=== PATIENT | female | born 1980 | race Caucasian/White ===

== ENCOUNTER → 2018-05-29 | Outpatient (CLI) | payer BC ==
--- NOTE | 2018-05-29 18:42 | RADIOLOGY REPORT (SQ) ---
EXAM DESCRIPTION: U/S NON-OB PELVIS W/O DOP COMPLETED DATE/TIME: 05/29/2018 6:24 pm REASON FOR STUDY: R10.2 PELVIC AND PERINEAL PAIN R10.2 PELVIC AND PERINEAL PAIN LMP 04/21/2018 COMPARISON: None. TECHNIQUE: Dynamic and static grayscale images acquired of the pelvis via transabdominal approach an d recorded on PACS. Additional selected color Doppler and spectral images recorded. LIMITATIONS: None. FINDINGS: UTERUS: Contour normal. No mass. ENDOMETRIAL STRIPE: No focal or generalized thickening. No masses. CERVIX: No nabothian cysts. RIGHT OVARY AND DOPPLER: Normal size. No worrisome masses. Normal arterial vascular flow without evid ence for torsion. LEFT OVARY AND DOPPLER: Normal size. No worrisome masses. Normal arterial vascular flow without evide nce for torsion. 14 mm cyst. FREE FLUID: None noted. OTHER: No other significant finding. MEASUREMENTS: UTERUS: 6.9 x 5.2 x 3.1 cm. ENDOMETRIAL STRIPE: 5 mm. RIGHT OVARY: 2.5 x 1.2 x 1.3 cm. LEFT OVARY: 2.6 x 2.4 x 1.8 cm. IMPRESSION: NORMAL PELVIC ULTRASOUND BY TRANSABDOMINAL TECHNIQUE. TECHNICAL DOCUMENTATION: JOB ID: [id number] [employer]- All Rights Reserved Rev-08/17 Reading location - IP/workstation name: [email or web address]
== END ==
LOC: RAD 05-28 18:03
PROVIDERS: ATTEND Student in an Organized Health Care Education/Training Program
DX: R10.2 Pelvic and perineal pain (principal)
CPT/HCPCS: 76856

== ENCOUNTER 2019-10-16 05:24 | Day surgery (SDC) | payer BC ==
[2019-10-13 10:49] LABS: HEMATOCRIT 37.9 % (36.0-47.0); HEMOGLOBIN 12.7 g/dL (12.0-15.5); MEAN CORPUSCULAR HEMOGLOBIN 30.9 pg (27.0-33.4); MEAN CORPUSCULAR HGB CONC 33.4 g/dL (32.0-36.0); MEAN CORPUSCULAR VOLUME 92 fl (80-97); PLATELET COUNT 281 10^3/uL (150-450); RED CELL DISTRIBUTION WIDTH 13.8 % (11.5-14.0); WHITE BLOOD COUNT 8.4 10^3/uL (4.0-10.5)
[2019-10-13 10:56] LABS: APPEARANCE,URINE CLEAR; BILIRUBIN,URINE NEGATIVE (NEGATIVE); CALCIUM OXALATE CRYSTALS,URINE FEW /HPF; COLOR,URINE YELLOW; GLUCOSE, URINE NEGATIVE (NEGATIVE); KETONES,URINE NEGATIVE (NEGATIVE); LEUKOCYTE ESTERASE,URINE NEGATIVE (NEGATIVE); NITRITE,URINE NEGATIVE (NEGATIVE); PROTEIN,URINE NEGATIVE (NEGATIVE); URIC ACID CRYSTALS,URINE RARE /HPF; URINE SPECIFIC GRAVITY 1.024; UROBILINOGEN,URINE NEGATIVE mg/dL (<2.0)
[2019-10-13 11:10] LABS: ALBUMIN 3.9 g/dL (3.5-5.0); ALKALINE PHOSPHATASE 78 U/L (38-126); ASPARTATE AMINO TRANSFERASE 20 U/L (14-36); BILIRUBIN,TOTAL 0.2 mg/dL (0.2-1.3); BLOOD UREA NITROGEN 13 mg/dL (7-20); CALCIUM 9.3 mg/dL (8.4-10.2); CARBON DIOXIDE 29 mmol/L (22-30); CHLORIDE 108 mmol/L (98-107); GLUCOSE 87 mg/dL (75-110); POTASSIUM 4.5 mmol/L (3.6-5.0); TOTAL PROTEIN 6.7 g/dL (6.3-8.2)
[2019-10-13 11:19] LABS: ANION GAP 2 (5-19)
[~2019-10-16 05:24] MED LIST: CLINDAMYCIN 900 MG/D5W RTU 900 MG/50 ML RTUPB IV ONE; GENTAMICIN SULFATE INJ 80 MG/2 ML VIAL ONE; GENTAMICIN SULFATE/PF INJ 20 MG/2 ML VIAL ONE; LACTATED RINGERS 1000 ML IV PRN; LIDOCAINE 0.5% INJ-PF (5 MG/ML) 50 ML SDV SUBCUT PRN
[2019-10-16] MEDS ORDERED: LIDOCAINE 1%/EPINEPHRINE INJ 20 ML VIAL ONE (07:07)
[2019-10-16] MEDS ORDERED: BUPIVACAINE HCL 0.25% /EPINEPHRINE INJ/PF 30 ML SDV ONE (07:07)
[2019-10-16] MEDS ORDERED: METHYLENE BLUE 50 MG/10 ML AMPULE ONE (07:08)
[2019-10-16] MEDS ORDERED: SCOPOLAMINE HYDROBROMIDE 1.5 MG PATCH.TD72 ONE (07:18)
[2019-10-16] MEDS ORDERED: MIDAZOLAM 2 MG/2 ML INJ ONE (07:21)
[2019-10-16] MEDS ORDERED: FENTANYL CITRATE INJ/PF 250 MCG/5 ML AMPULE ONE (07:21)
[2019-10-16] MEDS ORDERED: PROPOFOL INJ 200 MG/20 ML VIAL IV ONE (07:22)
[2019-10-16] MEDS ORDERED: EPHEDRINE SULFATE INJ 50 MG/1 ML AMPULE ONE (07:22)
[2019-10-16] MEDS ORDERED: ESTROGENS,CONJUGATED 0.625 MG/1 GM 30 GM TUBE PV ONE (08:00)
[2019-10-16] MEDS ORDERED: DIPHENHYDRAMINE HCL 50 MG/ML VIAL IV PRN (08:05)
[2019-10-16] MEDS ORDERED: PROMETHAZINE HCL INJ 25 MG/1 ML VIAL IV PRN ×3 (08:05→10:09)
[2019-10-16] MEDS ORDERED: FENTANYL CITRATE INJ/PF 100 MCG/2 ML AMPUL IV PRN ×3 (08:05)
[2019-10-16] MEDS ORDERED: OXYCODONE-ACETAMINOPHEN 5-325 MG TABLET PO PRN ×3 (08:05→10:09)
[2019-10-16] MEDS ORDERED: MEPERIDINE HCL/PF INJ 25 MG/1 ML DISP.SYRIN IV PRN (08:05)
[2019-10-16] MEDS ORDERED: ACETAMINOPHEN 325 MG TABLET PO PRN (10:09)
[2019-10-16] MEDS ORDERED: MORPHINE SULFATE 10 MG/ML INJ IV PRN (10:09)
[2019-10-16] MEDS ORDERED: DIPH/PERTUSS(ACELL)/TETANUS VAC/PF 0.5 ML SYR (>=10YO) IM PRN (10:09)
[2019-10-16] MEDS ORDERED: RINGERS SOLUTION,LACTATED 1,000 ML IV PRN (10:09)
[2019-10-16] MEDS ORDERED: ACETAMINOPHEN 1,000 MG/100 ML RTUPB IV PRN (10:09)
[2019-10-16] MEDS ORDERED: MEASLES,MUMPS&RUBELLA VACC/PF 0.5 ML VIAL SUBCUT PRN (10:09)
[2019-10-16] MEDS ORDERED: SIMETHICONE 80 MG TAB.CHEW PO PRN (10:09)
[2019-10-16] MEDS: FENTANYL CITRATE INJ/PF 100 MCG/2 ML AMPUL ONE ×2 (10:22→10:35)
[2019-10-16] MEDS ORDERED: PROMETHAZINE HCL INJ 25 MG/1 ML VIAL ONE (10:22)
--- NOTE | 2019-10-16 10:31 | Operative Report ---
Operative Report DATE OF SURGERY: 10/16/19 PREOPERATIVE DIAGNOSIS: uterovaginal prolapse, stress urinary incontinence, pel jewel pain POSTOPERATIVE DIAGNOSIS: same OPERATION: Laparoscopic assisted vaginal hysterectomy with bilateral salpingectomy modified Whitt culdoplasty, posterior repair, transvaginal tape, cystoscopy SURGEON: ANUJA BARRIOS 1ST HEEL BOOM OPERATOR: KERLINE AMAYA 2ND Unleavened Dough Mixer: PAM WHITEHEAD ANESTHESIA: GA TISSUE REMOVED OR ALTERED: Uterus cervix bilateral fallopian tubes COMPLICATIONS: None ESTIMATED BLOOD LOSS: 150 cc INTRAOPERATIVE FINDINGS: Uterus approximately 6 weeks size with a small anterior fibroid on the uterine fundus left of the midline, grade 2 prolapse posterior mucosa, anterior mucosa was normal with no evidence of prolapse. PROCEDURE: Patient was taken to the operating room prepared and draped in normal sterile fashion a dorsolithotomy position in [facility]. Coy cath failure was placed to gravity, and a sterile speculum was placed in the vagina the cervix was grasped with a single-tooth tenaculum Hulka clamp was placed for uterine manipulation. Sterile speculum was then removed as well as the single-tooth tenaculum.'s were changed and attention was turned to the upper portion of the case. Umbilical skin incision was made an 11 blade scalpel the peritoneal cavity was entered under direct visualization without Optiview the abdomen was inflated through this port was a 5 mm port with approximately 2 L of CO2 gas. The patient was placed in steep Trendelenburg and under direct visualization 2 5 mm ports were placed approximately 10 cm on either side of the umbilicus. A blunt probe was introduced and the bowel was swept away while the uterus was manipulated and the above findings were noted. Beginning with the left adnexa left fallopian tube was grasped and using a LigaSure the fallopian tube was transected from the mesosalpinx the utero-ovarian ligament was then transected using the LigaSure the rest of the uterine artery was skeletonized down to the level of the internal cervical office where the bladder flap was started using the LigaSure and the bladder flap was dissected bluntly away lower uterine segment. Then turned our attention to the right adnexa and in a similar fashion the right fallopian tube was removed and the right utero-ovarian ligament was transected using the LigaSure. Continued transection of the uterine artery skeletonizing it until we reached the level of the bladder flap and completed this using the LigaSure and blunt dissection. We examined the posterior cul-de-sac carefully and noted the uterosacral ligaments to be quite prominent. At this point because the uterosacral ligaments were so evident and prominent I decided to do a modified Whitt plasty with removal of the uterus rather than a deedee uterosacral suspension as this would be less invasive for the patient. We then turned our attention back to the lower portion of the case and began our vaginal approach the gas was turned off camera was removed ports were left in place. Short weighted speculum was placed in the vagina the cervix was grasped with a triple tooth tenaculum blade was placed in anterior fourchette. The cervix was then injected circumferentially with approximately 10 cc of Marcaine with epi. The uterine cervix was then scored with a 10 blade fascia was dissected away sharply with Perrin scissors and pickups. The anterior cul-de-sac was entered sharply with Perrin scissors for blood was placed in this defect to hold away the bladder we then entered the posterior cul-de-sac sharply with the Perrin's and replaced the short weighted speculum with a long weighted speculum. The uterosacral ligaments were then clamped on both sides with a Kanchan clamp and like transected and ligated with 0 Vicryl. These were tagged with hemostats on both sides. Then continued to complete my transection of the uterine arteries using Kanchan clamps and suture ligation. LigaSure was used as needed to complete the transection and the until the uterus was completely freed. The uterus and fallopian tubes were removed as 1 the deep weighted speculum was replaced with a short weighted speculum sponge stick was placed into the vaginal vaginal opening and the anterior was inspected and found to be quite hemostatic stick was then removed. And the cuff was closed with an 0 Vicryl runnier modified Whitt culdoplasty to incorporate the uterosacral ligaments into the closure for support. Once this was completed I then examined the patient once more and found that she did have some continued posterior prolapse for a posterior repair was begun. The posterior mucosa was tented with 2 Allis clamps in the midline and I injected this with Marcaine with epi the mucosa was then scored using a 15 blade and the mucosa was dissected away from the midline until adequate defect had been made. 2 support sutures of 0 Vicryl were used to compress the defect underneath the mucosa and correct the rectocele. Cosa that was extra was then removed using Metzenbaums skin was closed with an 2-0 Vicryl. At this point Dr. Whitehead joined me for help with the transvaginal tape. Asked him to inspect the patient's anatomy and he agreed with me the there was no need for an anterior repair well as he felt that the uterosacral ligaments were doing an adequate job of supporting the vaginal cuff. We then grasped the vaginal mucosa approximately 1-1/2 cm below the urethral opening with 2 Allis clamps in the midline and we injected this with Marcaine with epi to separate the vaginal mucosa from the underlying bladder mucosa we then added a third Allis and created a triangular affect scored in the midline we then dissected both bluntly and sharply with Metzenbaums on either side from the bladder underling under the obturator space. And made 2 holes in the greater notch in order to adequately place the obstetrics sling. The obstetrics was then placed through the obturator notch and passed in her existing defect until the needle was passed through the the and underneath the vaginal mucosa first on the left and then on the right. Inspected to make sure there is no piercing of the vaginal skin we then performed a cystoscopy and confirmed that the needles had not penetrated the bladder. Cystoscopy was completed and we then placed the optic sling hooking each end of the optic sling onto the needles and pulling the sling through the defect this was trimmed in a normal fashion. A Marjorie clamp was placed behind the transvaginal tape to ensure that it was not tightened to 2 extremely. The tape was trimmed at the skin. the skin was closed at both sites using Dermabond. Marjorie clamp was removed and the vaginal mucosa was closed in a running fashion with 2-0 Vicryl. The vagina was then packed with a Kerlix offered in Premarin cream. Coy was inspected to make sure there was no hematuria evident. And the procedure was completed. Sponge lap and needle counts were correct x2 and the patient was taken to recovery in stable condition.
[2019-10-16] MEDS: KETOROLAC TROMETHAMINE INJ/PF 30 MG/1 ML SDV IV SCH ×2 (13:20→18:24)
[2019-10-16] MEDS ORDERED: ONDANSETRON HCL INJ/PF 4 MG/2 ML SDV ONE (15:31)
[2019-10-16] MEDS ORDERED: NEOSTIGMINE METHYLSULFATE 10 MG/10 ML VIAL ONE (15:31)
[2019-10-16] MEDS ORDERED: ROCURONIUM BROMIDE INJ 50 MG/5 ML VIAL IV ONE (15:31)
[2019-10-16] MEDS ORDERED: DEXAMETHASONE SOD PHOSPHATE INJ 4 MG/1 ML VIAL ONE (15:31)
[2019-10-16] MEDS ORDERED: SUCCINYLCHOLINE CHLORIDE INJ 200 MG/10 ML VIAL ONE (15:31)
[2019-10-16] MEDS ORDERED: GLYCOPYRROLATE 1 MG/5 ML VIAL ONE (15:31)
[2019-10-16] MEDS: DOCUSATE SODIUM 100 MG CAPSULE PO SCH (18:30)
[2019-10-17] MEDS: KETOROLAC TROMETHAMINE INJ/PF 30 MG/1 ML SDV IV SCH (02:58)
[2019-10-17] MEDS: OXYCODONE-ACETAMINOPHEN 5-325 MG TABLET PO PRN ×2 (04:31→08:50)
[2019-10-17] MEDS ORDERED: IBUPROFEN 800 MG TABLET PO SCH (06:00)
[2019-10-17 07:30] LABS: HEMATOCRIT 34.5 % (36.0-47.0); HEMOGLOBIN 11.7 g/dL (12.0-15.5); MEAN CORPUSCULAR HEMOGLOBIN 31.3 pg (27.0-33.4); MEAN CORPUSCULAR VOLUME 92 fl (80-97); PLATELET COUNT 257 10^3/uL (150-450); RED BLOOD COUNT 3.75 10^6/uL (3.72-5.28); RED CELL DISTRIBUTION WIDTH 14.3 % (11.5-14.0); WHITE BLOOD COUNT 10.6 10^3/uL (4.0-10.5)
[2019-10-17 10:21] VITALS: BP 114/70
[2019-10-17] MEDS: DOCUSATE SODIUM 100 MG CAPSULE PO SCH (10:28)
--- NOTE | 2019-10-17 11:19 | PDOC DISCHARGE SUMMARY ---
Impression - Admit/DC Date/PCP Admission Date/Primary Care Provider: RACHELLE DENNIS MD Discharge Date: 10/17/19 - Discharge Diagnosis (1) Uterovaginal prolapse Is this a current diagnosis for this admission?: Yes (2) Stress incontinence of urine Is this a current diagnosis for this admission?: Yes (3) Pelvic pain Is this a current diagnosis for this admission?: Yes - Assessment Summary: underwentj LAVH w/ posterior repair and TOT yesterday. unremarkable post operative course. voiding normally and tolerating regular diet. - Additional Information Resuscitation Status: Full Code Discharge Diet: As Tolerated Discharge Activity: Balance Activity w/Rest, No Driving, No Lifting Over 10 Pounds, No Lifting/Push/Pulling, Pelvic Rest, No tub bath, Walk Frequently Referrals: ANUJA BARRIOS MD [ACTIVE STAFF] - 10/29/19 8:30 am (CALL THE OFFICE OF ANY QUESTIONS OR CONCERNS.) RAHCELLE DENNIS MD [Primary Care Provider] - Prescriptions: Oxycodone HCl/Acetaminophen [Percocet 5-325 mg Tablet] 1 tab PO Q4HP PRN #30 tablet PRN Reason: Docusate Sodium [Colace 100 mg Capsule] 100 mg PO BID #60 capsule Ibuprofen [Motrin 800 mg Tablet] 800 mg PO Q8H PRN #60 tablet PRN Reason: Home Medications: Bupropion HCl [Bupropion Xl] 300 mg PO DAILY 10/13/19 Estradiol [Estrace] 42.5 gm VG 10/13/19 Lisdexamfetamine Dimesylate [Vyvanse] 50 mg PO PRN PRN 10/13/19 Valacyclovir HCl [Valtrex 500 Mg Tablet] 500 mg PO DAILY 10/13/19 Venlafaxine HCl [Effexor 75 mg Tablet] 75 mg PO DAILY 10/13/19 Docusate Sodium [Colace 100 mg Capsule] 100 mg PO BID #60 capsule 10/17/19 Ibuprofen [Motrin 800 mg Tablet] 800 mg PO Q8H PRN #60 tablet 10/17/19 Oxycodone HCl/Acetaminophen [Percocet 5-325 mg Tablet] 1 tab PO Q4HP PRN #30 tablet 10/17/19 History of Present Illiness History of Present Illness: RADHA GRIFFITHS is a 39 year old female Physical Exam - Physical Exam Vital Signs: Temp Pulse Resp BP Pulse Ox 97.8 F 64 16 120/68 100 10/17/19 07:46 10/17/19 07:46 10/17/19 07:46 10/17/19 07:46 10/17/19 07:46 Intake & Output 10/16/19 10/17/19 10/18/19 06:59 06:59 06:59 Intake Total 0 2100 Output Total 1750 300 Balance 0 350 -300 Weight 68 kg 69.717 kg Results Laboratory Results: WBC 10.6 10^3/uL (4.0-10.5) H 10/17/19 07:08 RBC 3.75 10^6/uL (3.72-5.28) 10/17/19 07:08 Hgb 11.7 g/dL (12.0-15.5) L 10/17/19 07:08 Hct 34.5 % (36.0-47.0) L 10/17/19 07:08 MCV 92 fl (80-97) 10/17/19 07:08 MCH 31.3 pg (27.0-33.4) 10/17/19 07:08 MCHC 34.0 g/dL (32.0-36.0) 10/17/19 07:08 RDW 14.3 % (11.5-14.0) H 10/17/19 07:08 Plt Count 257 10^3/uL (150-450) 10/17/19 07:08 Sodium 138.7 mmol/L (137-145) 10/13/19 10:07 Potassium 4.5 mmol/L (3.6-5.0) 10/13/19 10:07 Chloride 108 mmol/L (98-107) H 10/13/19 10:07 Carbon Dioxide 29 mmol/L (22-30) 10/13/19 10:07 Anion Gap 2 (5-19) L 10/13/19 10:07 BUN 13 mg/dL (7-20) 10/13/19 10:07 Creatinine 0.60 mg/dL (0.52-1.25) 10/13/19 10:07 Est GFR ( Amer) > 60 (>60) 10/13/19 10:07 Est GFR (MDRD) Non-Af > 60 (>60) 10/13/19 10:07 Glucose 87 mg/dL (75-110) 10/13/19 10:07 Calcium 9.3 mg/dL (8.4-10.2) 10/13/19 10:07 Total Bilirubin 0.2 mg/dL (0.2-1.3) 10/13/19 10:07 Direct Bilirubin 0.0 mg/dL (0.0-0.4) 10/13/19 10:07 Neonat Total Bilirubin Not Reportable 10/13/19 10:07 Neonat Direct Bilirubin Not Reportable 10/13/19 10:07 Neonat Indirect Bili Not Reportable 10/13/19 10:07 AST 20 U/L (14-36) 10/13/19 10:07 ALT 13 U/L (<35) 10/13/19 10:07 Alkaline Phosphatase 78 U/L (38-126) 10/13/19 10:07 Total Protein 6.7 g/dL (6.3-8.2) 10/13/19 10:07 Albumin 3.9 g/dL (3.5-5.0) 10/13/19 10:07 Urine Color YELLOW 10/13/19 10:00 Urine Appearance CLEAR 10/13/19 10:00 Urine pH 5.0 (5.0-9.0) 10/13/19 10:00 Ur Specific Mchenry 1.024 10/13/19 10:00 Urine Protein NEGATIVE mg/dL (NEGATIVE) 10/13/19 10:00 Urine Glucose (UA) NEGATIVE mg/dL (NEGATIVE) 10/13/19 10:00 Urine Ketones NEGATIVE mg/dL (NEGATIVE) 10/13/19 10:00 Urine Blood SMALL (NEGATIVE) H 10/13/19 10:00 Urine Nitrite NEGATIVE (NEGATIVE) 10/13/19 10:00 Urine Bilirubin NEGATIVE (NEGATIVE) 10/13/19 10:00 Urine Urobilinogen NEGATIVE mg/dL (<2.0) 10/13/19 10:00 Ur Leukocyte Esterase NEGATIVE (NEGATIVE) 10/13/19 10:00 Urine WBC (Auto) 1 /HPF 10/13/19 10:00 Urine RBC (Auto) 2 /HPF 10/13/19 10:00 Squamous Epi Cells Auto 2 /HPF 10/13/19 10:00 Calcium Oxalate Cr Auto FEW /HPF 10/13/19 10:00 Uric Acid Cryst (Auto) RARE /HPF 10/13/19 10:00 Urine Mucus (Auto) FEW /LPF 10/13/19 10:00 Urine Ascorbic Acid NEGATIVE (NEGATIVE) 10/13/19 10:00 Urine HCG, Qual NEGATIVE (NEGATIVE) 10/16/19 05:30 COVID-19 Source NASOPHARYNGEAL 10/13/19 10:02 COVID-19 (ANALI) NOT DETECTED 10/13/19 10:02 Blood Type A POSITIVE 10/13/19 10:07 Antibody Screen NEGATIVE 10/13/19 10:07 Stroke Is this a Stroke Patient?: No Acute Heart Failure - Is this a Heart Failure Patient?: No
== END 2019-10-17 11:00 | disposition home or self-care (01) ==
LOC: OROUT 05:24 → 2N 11:20 → OROUT 10-17 11:00
PROVIDERS: ATTEND Obstetrics & Gynecology
DX: N87.0 Mild cervical dysplasia (principal); N80.0 Endometriosis of uterus; D25.9 Leiomyoma of uterus, unspecified; N83.8 Other noninflammatory disorders of ovary, fallopian tube and broad ligament; N39.3 Stress incontinence (female) (male); N81.4 Uterovaginal prolapse, unspecified; R10.2 Pelvic and perineal pain; N93.9 Abnormal uterine and vaginal bleeding, unspecified; Z85.43 Personal history of malignant neoplasm of ovary; Z85.828 Personal history of other malignant neoplasm of skin; Z91.040 Latex allergy status; Z88.0 Allergy status to penicillin; Z91.09 Other allergy status, other than to drugs and biological substances; Z03.818 Encounter for observation for suspected exposure to other biological agents ruled out
CPT/HCPCS: 86900; 86901; 36415 ×2; 86850; 85027 ×2; 87635; 81025; 80053; 81001; 88307 ×2; 94799; 00840; 58552; 57288; 57250; C1758; C1771; J2250; J3490 ×7; J1100; J3010 ×2; J1580 ×2; J1885 ×2; J2710; J2550; J0330; J2405; J2704; C9803; S2900; 840; Q9968

== ENCOUNTER → 2019-10-20 | Outpatient (CLI) | payer BC ==
--- NOTE | 2019-10-20 12:18 | RADIOLOGY REPORT (SQ) ---
EXAM DESCRIPTION: CT ABD/PELVIS NO ORAL OR IV IMAGES COMPLETED DATE/TIME: 10/20/2019 11:56 am REASON FOR STUDY: INTRA-ABD AND PELVIC SWELLING, MASS AND LUMP, UNSP SITE G89.18 OTHER ACUTE POSTPR OCEDURAL PAIN R19.00 INTRA-ABD AND PELVIC SWELLING, MASS AND LUMP, UNSP SI COMPARISON: None. TECHNIQUE: CT scan of the abdomen and pelvis performed without intravenous or oral contrast. Images reviewed with lung, soft tissue, and bone windows. Reconstructed coronal and sagittal MPR images revi ewed. All images stored on PACS. All CT scanners at this facility use dose modulation, iterative reconstruction, and/or weight based d osing when appropriate to reduce radiation dose to as low as reasonably achievable (ALARA). [facility]: Dose Right [facility]: CareDose [facility]: Dose Right [facility]: Teradose 4D [facility]: [employer] RADIATION DOSE: CT Rad equipment meets quality standard of care and radiation dose reduction techniq ues were employed. CTDIvol: 5.9 mGy. DLP: 323 mGy-cm.mGy. LIMITATIONS: None. FINDINGS: LOWER CHEST: No significant findings. No nodules or infiltrates. NON-CONTRASTED LIVER, SPLEEN, ADRENALS: Liver and spleen normal. 2.2 cm low density adrenal adenoma on the right (Hounsfield units less than 5). Left adrenal normal. PANCREAS: No masses. No peripancreatic inflammatory changes. GALLBLADDER: No identified stones by CT criteria. No inflammatory changes to suggest cholecystitis. RIGHT KIDNEY AND URETER: No solid masses. No significant calcification. No hydronephrosis or hydroure ter. LEFT KIDNEY AND URETER: No solid masses. No significant calcification. No hydronephrosis or hydrouret er. AORTA AND RETROPERITONEUM: No aneurysm. No retroperitoneal masses or adenopathy. BOWEL AND PERITONEAL CAVITY: Moderate stool. No suggestion of mechanical bowel obstruction. No drai nable fluid collections. Deep subcutaneous gas along the left abdominal wall. Dots of intra-abdomin al gas as well, mild. Consistent with recent hysterectomy history. APPENDIX: Normal. PELVIS, BLADDER, AND ABDOMINAL WALL:No abnormal masses. No free fluid. Bladder normal. BONES: No significant findings. OTHER: No other significant finding. IMPRESSION: 1. Postoperative changes, mild deep subcutaneous and intraabdominal free air. No evidence of abscess , however. TECHNICAL DOCUMENTATION: JOB ID: [id number] Quality ID # [id number]: Final reports with documentation of one or more dose reduction techniques (e.g., Au tomated exposure control, adjustment of the mA and/or kV according to patient size, use of iterative reconstruction technique) 2010 [employer]- All Rights Reserved Reading location - IP/workstation name: [email or web address]
== END ==
LOC: RAD 10:37
PROVIDERS: ATTEND Student in an Organized Health Care Education/Training Program
DX: G89.18 Other acute postprocedural pain (principal); R19.00 Intra-abdominal and pelvic swelling, mass and lump, unspecified site
CPT/HCPCS: 74176